=== PATIENT | male | born 1980 | race Caucasian/White ===

== ENCOUNTER 2020-01-17 12:11 | Outpatient (CLI) | payer OTHER ==
--- NOTE | 2020-01-17 13:47 | MRI ---
MRI CERVICAL SPINE WITHOUT CONTRAST: 01/17/20 INDICATIONS: Cervical radiculopathy. FINDINGS: Cervical vertebrae maintain normal height and alignment. Disc spaces are maintained. Very mild degene rative spurring from the cervical vertebrae noted. C3-4: No significant disc bulge or spondylosis. Mild uncinate hypertrophy on the right produces mild right foraminal encroachment. C4-5: No significant disc bulge or protrusion. Mild right uncinate hypertrophy producing very mild r ight foraminal encroachment. C5-6: No significant disc bulge centrally. There is evidence of asymmetric bulge on the right combine d with right uncinate hypertrophy encroaching in the right foraminal zone and resulting in mild right foraminal stenosis. This slightly flattens the anterior thecal sac on the right. No central canal st enosis. C6-7: No significant disc bulge. No evidence of significant central canal or foraminal stenosis. C7-T1: Posterior ligamentous changes on the left mildly compress the posterior thecal sac on the left ; however, there is no cord impingement and no central canal or foraminal stenosis. Cervical cord signal appears normal. IMPRESSION: Possible small protrusion associated with uncinate hypertrophy on the right at C5-6. Uncinate hypertr ophy at C3-4 and C4-5 on the right noted as described above. POS: AH
== END 2020-01-17 12:12 | disposition home or self-care (01) ==
LOC: TBSIIMAG 12:11
PROVIDERS: ATTEND Neurological Surgery
DX: M50.11 Cervical disc disorder with radiculopathy, high cervical region (principal)
CPT/HCPCS: 72141